=== PATIENT | female | born 1965 | race Caucasian/White ===

== ENCOUNTER → 2017-03-15 | Outpatient (CLI) | payer BC | LOC: MAMO 12:51 | DX: Z12.31 Encounter for screening mammogram for malignant neoplasm of breast (principal); Z80.3 Family history of malignant neoplasm of breast | CPT/HCPCS: G0202 ==

== ENCOUNTER → 2021-02-28 | Outpatient (CLI) | payer BC ==
[2021-02-28 09:17] LABS: HEMOGLOBIN 13.2 gm/dl (12.3-15.3); RED BLOOD COUNT 4.38 M/UL (4.00-5.10); WHITE BLOOD COUNT 5.3 K/UL (4.5-11.0)
[2021-03-01 06:12] LABS: THYROXINE (T4) 6.7 ug/dL (4.5-12.0); VITAMIN D, 25-HYDROXY 91.1 ng/mL (30.0-100.0)
== END ==
LOC: LAB 08:19
PROVIDERS: Nurse Practitioner Family
DX: E78.5 Hyperlipidemia, unspecified (principal); R53.82 Chronic fatigue, unspecified; I10 Essential (primary) hypertension
CPT/HCPCS: 36415; 80053; 80061; 81001; 84436; 84443; 84480; 85025

== ENCOUNTER → 2021-05-02 | Outpatient (CLI) | payer BC ==
[~2021-05-02] MED LIST: BUPROPION HCL150 MG PO; CALCIUM 600 +1 EA12 PO; FLUTICASONE SPRAY; HYDROCODON-ACE1 EAC4 PO; LOSARTAN-HCTZ1 EAC1 PO; NORVASC5 MG PO
[2021-05-02 11:32] LABS: HEMOGLOBIN 13.7 gm/dl (12.3-15.3); RED BLOOD COUNT 4.58 M/UL (4.00-5.10); WHITE BLOOD COUNT 4.8 K/UL (4.5-11.0)
== END ==
LOC: OPSV2 10:28
PROVIDERS: Orthopaedic Surgery
DX: Z01.818 Encounter for other preprocedural examination (principal); G56.01 Carpal tunnel syndrome, right upper limb; R94.31 Abnormal electrocardiogram [ECG] [EKG]; I21.9 Acute myocardial infarction, unspecified
CPT/HCPCS: 36415; 80048; 85025; 93005

== ENCOUNTER → 2021-05-05 | Day surgery (SDC) | payer BC ==
[~2021-05-05] VITALS: Ht 162.6 cm; Wt 91.2 kg
== END | disposition home or self-care (01) ==
LOC: OR 05:52
DX: G56.03 Carpal tunnel syndrome, bilateral upper limbs (principal); G56.21 Lesion of ulnar nerve, right upper limb; I10 Essential (primary) hypertension; E78.5 Hyperlipidemia, unspecified; F32.9 Major depressive disorder, single episode, unspecified; Z79.899 Other long term (current) drug therapy
CPT/HCPCS: J0690; J2001; J2250; J2704; J3010; J7030; J7120

== ENCOUNTER → 2021-12-22 | Outpatient (CLI) | payer BC ==
[2021-12-22 09:10] LABS: HEMOGLOBIN 13.1 gm/dl (12.3-15.3); RED BLOOD COUNT 4.55 M/UL (4.00-5.10)
[2021-12-23 08:19] LABS: THYROXINE (T4) 8.2 ug/dL (4.5-12.0); VITAMIN D, 25-HYDROXY 75.3 ng/mL (30.0-100.0)
== END ==
LOC: LAB 08:26
PROVIDERS: Nurse Practitioner Family
DX: I10 Essential (primary) hypertension (principal); E78.5 Hyperlipidemia, unspecified; F41.9 Anxiety disorder, unspecified; E11.9 Type 2 diabetes mellitus without complications; R53.83 Other fatigue
CPT/HCPCS: 36415; 80053; 80061; 83036; 84436; 84443; 84480; 85025

== ENCOUNTER → 2022-02-11 | Outpatient (CLI) | payer OTHER | LOC: KOH-I 16:51 | DX: M25.531 Pain in right wrist (principal); M79.601 Pain in right arm | CPT/HCPCS: 73090; 73110; 73130 ==